=== PATIENT | male | born 1960 | race African-American/Black ===

== ENCOUNTER → 2016-08-03 | Outpatient (CLI) | payer MEDICARE | LOC: KOH-I 10:16 | DX: R74.8 Abnormal levels of other serum enzymes (principal); K76.0 Fatty (change of) liver, not elsewhere classified | CPT/HCPCS: 76705 ==

== ENCOUNTER → 2020-06-24 | Outpatient (CLI) | payer BC | LOC: KOH-I 16:02 | DX: M25.511 Pain in right shoulder (principal); M79.641 Pain in right hand; R93.6 Abnormal findings on diagnostic imaging of limbs | CPT/HCPCS: 73030; 73130 ==

== ENCOUNTER → 2020-07-09 | Outpatient (CLI) | payer MEDICARE | LOC: EMI 07-08 13:00 | DX: M79.641 Pain in right hand (principal); M79.89 Other specified soft tissue disorders; M89.8X8 Other specified disorders of bone, other site | CPT/HCPCS: 73220 ==

== ENCOUNTER 2020-12-21 18:12 | Emergency (ER) | payer MEDICARE ==
[2020-12-21 20:09] LABS: HEMOGLOBIN 14.2 gm/dl (14.0-17.5); RED BLOOD COUNT 4.55 M/UL (4.20-5.50); WHITE BLOOD COUNT 3.1 K/UL (4.5-11.0)
[2020-12-21 20:36] LABS: BUN/CREATININE RATIO 20 (0-10)
[2020-12-22] MEDS ORDERED: CEPHALEXIN500 MG PO (00:32)
[2020-12-22] MEDS ORDERED: BACTRIM DS TAB1 EACH PO (00:32)
== END 2020-12-22 00:40 | disposition home or self-care (01) ==
LOC: ER1 18:12
PROVIDERS: Physician Assistant
DX: L03.116 Cellulitis of left lower limb (principal); R60.0 Localized edema; I10 Essential (primary) hypertension; Z88.5 Allergy status to narcotic agent; Z88.0 Allergy status to penicillin
CPT/HCPCS: 80053; 85025; 85379; 99283

== ENCOUNTER 2021-02-24 20:03 | Emergency (ER) | payer MEDICARE ==
[~2021-02-24 20:03] MED LIST: BACTRIM DS TAB1 EACH PO; CEPHALEXIN500 MG PO
[2021-02-24 20:57] LABS: HEMOGLOBIN 15.7 gm/dl (14.0-17.5); RED BLOOD COUNT 4.78 M/UL (4.20-5.50); WHITE BLOOD COUNT 3.4 K/UL (4.5-11.0)
[2021-02-24 21:18] LABS: BUN/CREATININE RATIO 16 (0-10)
[2021-02-24] MEDS ORDERED: CEPHALEXIN500 M1 PO (23:02)
[2021-02-24] MEDS ORDERED: ONDANSETRON ODT4 MG SL (23:02)
[2021-02-24] MEDS ORDERED: BACTRIM DS TAB1 EACH PO (23:02)
== END 2021-02-24 23:16 | disposition home or self-care (01) ==
LOC: ER1 20:03
PROVIDERS: Physician Assistant
DX: L03.116 Cellulitis of left lower limb (principal); R10.32 Left lower quadrant pain; E78.5 Hyperlipidemia, unspecified; I10 Essential (primary) hypertension; Z88.0 Allergy status to penicillin; Z88.8 Allergy status to other drugs, medicaments and biological substances; R31.9 Hematuria, unspecified
CPT/HCPCS: 80053; 81001; 83605; 83690; 85025; 87040; 87086; 99284; Q9967

== ENCOUNTER → 2021-02-25 | Outpatient (CLI) | payer MEDICARE ==
[~2021-02-25] MED LIST changes: +CEPHALEXIN500 M1 PO; +ONDANSETRON ODT4 MG SL
== END ==
LOC: US 10:24
DX: R22.43 Localized swelling, mass and lump, lower limb, bilateral (principal)
CPT/HCPCS: 93970

== ENCOUNTER → 2021-04-20 | Outpatient (CLI) | payer MEDICARE | LOC: MRI 08:29 | DX: G83.4 Cauda equina syndrome (principal); R20.0 Anesthesia of skin; M47.816 Spondylosis without myelopathy or radiculopathy, lumbar region; M47.817 Spondylosis without myelopathy or radiculopathy, lumbosacral region | CPT/HCPCS: 72158; A9577 ==

== ENCOUNTER → 2021-06-21 | Outpatient (CLI) | payer MEDICARE | LOC: KOH-I 08:47 | DX: M43.16 Spondylolisthesis, lumbar region (principal); M43.17 Spondylolisthesis, lumbosacral region | CPT/HCPCS: 72100 ==

== ENCOUNTER → 2021-09-09 | Outpatient (CLI) | payer MEDICARE | LOC: CT 14:57 | DX: M54.50 Low back pain, unspecified (principal); M43.16 Spondylolisthesis, lumbar region; M53.2X6 Spinal instabilities, lumbar region; M51.36 Other intervertebral disc degeneration, lumbar region; G95.19 Other vascular myelopathies | CPT/HCPCS: 72131 ==

== ENCOUNTER → 2021-09-15 | Outpatient (CLI) | payer MEDICARE | LOC: RT 09:32 | DX: Z01.810 Encounter for preprocedural cardiovascular examination (principal); M53.2X9 Spinal instabilities, site unspecified; M43.16 Spondylolisthesis, lumbar region | CPT/HCPCS: 93005 ==

== ENCOUNTER → 2021-09-21 | Outpatient (CLI) | payer MEDICARE | LOC: LAB 08:04 | DX: Z20.822 Contact with and (suspected) exposure to COVID-19 (principal) | CPT/HCPCS: U0003 ==